=== PATIENT | male | born 1930 | race Caucasian/White ===

== ENCOUNTER 2018-01-05 07:10 | Day surgery (SDC) | payer OTHER, BC ==
[~2018-01-05] VITALS: Ht 175.3 cm; Wt 103.9 kg
[~2018-01-05 07:10] MED LIST: CEFAZOLIN 1 GM IVPB PREMIX 50 ML IV ONE
[2018-01-05] MEDS ORDERED: LR 1,000 ML IV.SOLN IV ONE (10:35)
[2018-01-05] MEDS ORDERED: fentaNYL CITRATE 250 MCG/5 ML AMP IV ONE (10:35)
[2018-01-05] MEDS ORDERED: DEXAMETHASONE SOD PHOSPHATE 4 MG/ML VIAL IVP ONE (10:35)
[2018-01-05] MEDS ORDERED: SEVOFLURANE 15 MIN GAS INH ONE (10:35)
[2018-01-05] MEDS ORDERED: ONDANSETRON HCL 4 MG/2 ML VIAL IVP ONE ×2 (10:35→12:45)
[2018-01-05] MEDS ORDERED: MIDAZOLAM HCL 5 MG/5 ML VIAL IVP ONE (10:35)
[2018-01-05] MEDS ORDERED: ETOMIDATE 20 MG/ 10 ML VIAL (AMIDATE) IVP ONE (10:35)
[2018-01-05] MEDS ORDERED: BUPIVACAINE /PF 0.25% 30 ML VIAL INJ ONE (10:35)
[2018-01-05] MEDS ORDERED: POLYMYXIN 500,000/BACIT.10,000 UNITS in NS IRR 1 L IR ONE (11:10)
[2018-01-05] MEDS ORDERED: HYDROcodone/ACETAMIN 5-325 MG TAB (NORCO/ VICODIN) PO PRN ×2 (11:45)
[2018-01-05] MEDS ORDERED: D5/0.45 NS 1,000 ML IV SCH (11:45)
[2018-01-05] MEDS ORDERED: HYDROmorphone 1 MG INJ. 1 MG/ML AMPUL IVP PRN (11:45)
[2018-01-05] MEDS ORDERED: MEPERIDINE HCL/PF 25 MG/ML DISP.SYRIN IVP PRN (12:45)
[2018-01-05] MEDS ORDERED: LABETALOL 100 MG/ 20ML VIAL IVP PRN (12:45)
[2018-01-05] MEDS ORDERED: fentaNYL CITRATE/PF 100 MCG/2 ML AMP IVP PRN (12:45)
[2018-01-05] MEDS ORDERED: NALOXONE HCL 0.4 MG/ML AMP (NARCAN) IVP ONE (12:45)
[2018-01-05] MEDS ORDERED: MIDAZOLAM HCL 5 MG/5 ML VIAL IVP PRN (12:45)
[2018-01-05 15:13] VITALS: BP_SYST 116
[2018-01-11] MEDS ORDERED: SUCR1TAB78 PO (15:50)
[2018-01-11] MEDS ORDERED: ACET-1172 PO (15:55)
[2018-01-11] MEDS ORDERED: D3/E1CAP PO (15:55)
[2018-01-11] MEDS ORDERED: PANT20TA2 PO (15:55)
[2018-01-11] MEDS ORDERED: INSU100V11 SQ ×2 (15:55→15:58)
[2018-01-11] MEDS ORDERED: DOCU-144 PO (15:58)
== END 2018-01-05 15:05 ==
LOC: SDS 07:10 → SMU 07:10 → SDS 15:05
PROVIDERS: ATTEND Colon & Rectal Surgery
DX: C76.8 Malignant neoplasm of other specified ill-defined sites (principal); I12.9 Hypertensive chronic kidney disease with stage 1 through stage 4 chronic kidney disease, or unspecified chronic kidney disease; E11.22 Type 2 diabetes mellitus with diabetic chronic kidney disease; N18.4 Chronic kidney disease, stage 4 (severe); Z98.890 Other specified postprocedural states; Z68.33 Body mass index [BMI] 33.0-33.9, adult; Z79.899 Other long term (current) drug therapy; Z79.4 Long term (current) use of insulin; J84.89 Other specified interstitial pulmonary diseases; E66.9 Obesity, unspecified; I48.91 Unspecified atrial fibrillation; E11.622 Type 2 diabetes mellitus with other skin ulcer; L98.429 Non-pressure chronic ulcer of back with unspecified severity; J84.9 Interstitial pulmonary disease, unspecified
CPT/HCPCS: 13101; 13102; 21933; 82948; 82962; 88305; J0690; J1100; J2250; J2405; J3010; J3490 ×2; J7120